=== PATIENT | male | born 1970 | race Caucasian/White ===

== ENCOUNTER → 2017-08-08 | Outpatient (CLI) | payer OTHER ==
--- NOTE | 2017-08-08 18:58 | MR ---
EXAMINATION TYPE: MR lumbar spine wo con DATE OF EXAM: 08/08/2017 COMPARISON: 01/04/2015 HISTORY: LBP, BLE radic x several years TECHNIQUE: T1 and T2 axial and sagittal images of the lumbar spine are submitted. FINDINGS: There is no abnormal signal seen within the visualized spinal cord or paraspinal soft tissu es. Vertebral body hemangioma of L4 At L1-2 there is no disc herniation or canal stenosis. No foraminal encroachment. At L2-3 there is no disc herniation or canal stenosis. No foraminal encroachment At L3-4 there is mild degenerative disc disease. Circumferential disc bulging results in mild bilater al foraminal encroachment. Borderline canal stenosis. At L4-5 there is mild/moderate degenerative disc disease diffuse central disc bulge or protrusion res ulting in moderate compression thecal sac. Facet arthropathy and ligamentum flavum hypertrophy noted. Moderate canal stenosis. At L5-S1 there is moderate degenerative disc disease. Focal central disc protrusion with moderate eff acement of thecal sac. There is moderate bilateral foraminal encroachment. Facet arthropathy contribu cameron to foraminal encroachment. IMPRESSION: 1. Stable MRI demonstrating focal central disc herniation L5-S1 with moderate effacement of thecal sa c, canal stenosis and bilateral foraminal encroachment. 2. Diffuse disc bulging or broad-based protrusion L4-L5 stable in appearance result in moderate compr ession of the thecal sac and canal stenosis. Bilateral foraminal encroachment stable. 3. Borderline canal stenosis L3-L4 due to hypertrophic changes and circumferential disc bulging. 4. Multilevel degenerative disc disease table.
== END | disposition home or self-care (01) ==
LOC: RADMRIMAIN 16:59
PROVIDERS: ATTEND Physical Medicine & Rehabilitation
DX: M48.061 Spinal stenosis, lumbar region without neurogenic claudication (principal); M51.27 Other intervertebral disc displacement, lumbosacral region; M51.36 Other intervertebral disc degeneration, lumbar region
CPT/HCPCS: 72148

== ENCOUNTER → 2019-03-27 | Outpatient (CLI) | payer OTHER ==
--- NOTE | 2019-03-27 18:23 | XR ---
EXAMINATION TYPE: XR knee complete RT DATE OF EXAM: 03/27/2019 COMPARISON: NONE HISTORY: Pain TECHNIQUE: Four views are submitted. FINDINGS: Joint spaces are preserved. Osseous structures are intact. No acute fracture seen. Calcific densit y is seen on the frontal view overlying the joint space. There is mild hypertrophic change of the pat lawanda patellofemoral joint. No erosive changes. Calcifications overlying the joint space may be relate d to early chondrocalcinosis. MRI correlation suggested.. IMPRESSION: 1. Mild arthropathy.
--- NOTE | 2019-03-27 18:25 | XR ---
EXAMINATION TYPE: XR thoracic spine 2V DATE OF EXAM: 03/27/2019 COMPARISON: NONE HISTORY: Pain Alignment is anatomic. There is no compression deformities. There is subsegmental consolidation at b oth lung bases which are partially visualized. Heart is prominent. There is hypertrophic and degenera tive disc disease throughout the visualized thoracic spine. IMPRESSION: 1. Multilevel degenerative disc disease. 2. Dedicated chest x-ray recommended if clinically warranted as there appears to be areas of subsegme ntal consolidation within the visualized lung marino at the bases. This could be secondary to reduced inspiration correlate clinically.
--- NOTE | 2019-03-28 21:02 | MR ---
EXAMINATION TYPE: MR lumbar spine wo/w con DATE OF EXAM: 03/27/2019 COMPARISON: MRI lumbar spine August 08, 2017 and older studies. HISTORY: Intervertebral disc degeneration, lumbar TECHNIQUE: Multiplanar, multisequence images of the lumbar spine is performed without and with IV contrast, util izing 9 mL intravenous Gadavist FINDINGS: Sagittal images of the lumbar spine show vertebral body heights and alignment to remain sat isfactory. Multilevel disc desiccation with mild to moderate disc space narrowing L4-L5 and L5-S1 lev els most prominent posterior aspect. The conus medullaris is normal in position and signal ending mi d L1 level. Mild multilevel anterior spurring with heterogeneous endplate changes for reference Modic type II endplate changes posterior L4-L5 level. Small hemangioma noted in L4 vertebra sagittal image 7. Axial images show the T12-L1, L1-L2, and L2-L3 levels all to appear within normal limits. Axial images at the L3-L4 level mild broad disc bulge minimally effacing the anterior thecal sac. Hussein ateral neural foramina are patent. No significant change from prior. Axial images at the L4-L5 level show [id number] broad disc bulge effacing anterior thecal sac a nd causing mild to moderate bilaterally into inferior neural foraminal narrowing. Mild facet degenera tive changes are present bilaterally. No significant change from prior. Axial images at the L5-S1 level show mild facet degenerative changes bilaterally. There is broad disc bulge with central disc protrusion component. There is [id number] bilateral anterior inferior neural foraminal narrowing. No significant change from prior. No suspicious incidental retroperitoneal findings are seen. No suspicious postcontrast enhancement is noted. IMPRESSION: Multilevel degenerative changes most prominent in the mid to lower lumbar spine as detail ed above without significant change or progression from most recent MRI.
== END | disposition home or self-care (01) ==
LOC: RADMRIMAIN 15:34
PROVIDERS: ATTEND Physical Medicine & Rehabilitation
DX: M48.061 Spinal stenosis, lumbar region without neurogenic claudication (principal); M47.816 Spondylosis without myelopathy or radiculopathy, lumbar region; M51.26 Other intervertebral disc displacement, lumbar region; M51.34 Other intervertebral disc degeneration, thoracic region; M12.861 Other specific arthropathies, not elsewhere classified, right knee
CPT/HCPCS: 72070; 73562; 72158; A9585

== ENCOUNTER → 2020-02-02 | Outpatient (CLI) | payer OTHER ==
--- NOTE | 2020-02-03 05:39 | MR ---
EXAMINATION TYPE: MR thoracic spine wo/w con DATE OF EXAM: 02/02/2020 COMPARISON: None HISTORY: Mid back pain, across shoulders and neck CONTRAST: Standard multiplanar, multisequence MRI departmental protocol utilizing 9 mL intravenous Gadavist ryan olinium contrast. Thoracic vertebra have fairly normal alignment. There is no compression fracture. Disc spaces are keri rly normal. Thoracic spinal cord has normal signal pattern. There is no edema. There is no thoracic s tanika stenosis. There is no thoracic paraspinal mass. There is mild anterior spurring in the lower th oracic spine. Contrast images show no pathologic enhancement. IMPRESSION: Multilevel anterior hypertrophic degenerative changes without significant disc space narrowing. No fr acture. No spinal stenosis. No thoracic disc herniation.
== END | disposition home or self-care (01) ==
LOC: RADMRIMAIN 15:27
PROVIDERS: ATTEND Physical Medicine & Rehabilitation
DX: M47.814 Spondylosis without myelopathy or radiculopathy, thoracic region (principal)
CPT/HCPCS: 72157; A9585

== ENCOUNTER → 2022-06-11 | Outpatient (CLI) | payer OTHER ==
--- NOTE | 2022-06-11 16:26 | XR ---
EXAMINATION TYPE: XR knee complete LT DATE OF EXAM: 06/11/2022 2:55 PM INDICATION: Patient age:Male; 51 years old; Reason for study: M25.562 PAIN IN LEFT KNEE; COMPARISON: None. TECHNIQUE: The Left knee(s) was examined in Frontal, lateral and oblique projections. FINDINGS: No evidence of any acute osseous pathology, joint space narrowing, soft tissue swelling, or joint effusion is noted. Tricompartmental osteophyte formation involving the femoral condyles, tibial plateau and patella. A fabella is present. Chondrocalcinosis is present. IMPRESSION: 1. No acute osseous pathology. 2. Mild tricompartmental osteoarthritic changes 3. Chondrocalcinosis
== END | disposition home or self-care (01) ==
LOC: RADXRMAIN 14:35
PROVIDERS: ATTEND Family Medicine
DX: M17.12 Unilateral primary osteoarthritis, left knee (principal); M11.262 Other chondrocalcinosis, left knee

== ENCOUNTER 2022-10-09 07:37 | Day surgery (SDC) | payer OTHER ==
[2022-10-05 10:58] VITALS: BMI 32.5
[~2022-10-09 07:37] MED LIST: LACTATED RINGERS 1,000 ML IV SCH
[2022-10-09 08:16] VITALS: TEMP 97
[2022-10-09] MEDS ORDERED: PROPOFOL 10 MG/ML 20 ML VIAL IV ONE (08:35)
--- NOTE | 2022-10-09 08:37 | P.GSHP ---
History of Present Illness H&P Date: 10/09/22 Chief Complaint: Colon cancer screening 52-year-old male here today for screening colonoscopy. He has not had one before. No bowel complaints. No family history of colon cancer. Past Medical History Past Medical History: Hyperlipidemia, Hypertension Additional Past Medical History / Comment(s): overactive bladder History of Any Multi-Drug Resistant Organisms: None Reported Past Surgical History: No Surgical Hx Reported Past Anesthesia/Blood Transfusion Reactions: No Reported Reaction Additional Past Anesthesia/Blood Transfusion Reaction / Comment(s): no issues with anesth during tooth extraction Past Psychological History: Anxiety, Depression Smoking Status: Never smoker Past Alcohol Use History: None Reported Past Drug Use History: Marijuana Additional Drug Use History / Comment(s): daily marijuana, asked to refrain within 24 hours of anesth. Medications and Allergies Home Medications Medication Instructions Recorded Confirmed Type Atorvastatin [Lipitor] 10 mg PO DAILY 10/05/22 10/09/22 History Fesoterodine Fumarate [Toviaz] 4 mg PO DAILY 10/05/22 10/09/22 History HYDROcodone/APAP 10-325MG [Tell 1 tab PO TID PRN 10/05/22 10/09/22 History 10-325] Losartan Potassium [Cozaar] 100 mg PO DAILY 10/05/22 10/09/22 History Multivitamins, Thera [Multivitamin 1 tab PO DAILY 10/05/22 10/09/22 History (formulary)] Sertraline [Zoloft] 100 mg PO DAILY 10/05/22 10/09/22 History Allergies Allergy/AdvReac Type Severity Reaction Status Date / Time amoxicillin [From Trimox] Allergy Rash/Hives Verified 10/09/22 07:58 Surgical - Exam Vital Signs Temp Pulse Resp BP Pulse Ox 97.0 F L 97 15 147/81 98 10/09/22 08:10 10/09/22 08:10 10/09/22 08:10 10/09/22 08:10 10/09/22 08:10 Physical exam: General: Well-developed, well-nourished HEENT: Normocephalic, sclerae nonicteric Abdomen: Nontender, nondistended Extremities: No edema Neuro: Alert and oriented Assessment and Plan (1) Colon cancer screening Narrative/Plan: Will proceed with colonoscopy at this time. Current Visit: Yes Status: Acute Code(s): Z12.11 - ENCOUNTER FOR SCREENING FOR MALIGNANT NEOPLASM OF COLON SNOMED Code(s): 957116796
--- NOTE | 2022-10-09 08:53 | P.PCN ---
Date of Procedure: 10/09/22 Procedure(s) Performed: PREOPERATIVE DIAGNOSIS: Colon cancer screening POSTOPERATIVE DIAGNOSIS: Ascending colon polyp, transverse colon polyp, extensive diverticulosis PROCEDURE: Colonoscopy with snare polypectomy ANESTHESIA: MAC SURGEON: Olvin Velarde M.D. SPECIMENS: Polyps ENDOSCOPIC PROCEDURE: The patient was placed on the endoscopy table in the left decubitus position. The Olympus colonoscope was inserted into the anus and passed under direct visualization to the base of the cecum. The appendiceal orifice was visualized. From that point the scope was slowly withdrawn inspecting all surfaces carefully. There were no neoplastic inflammatory or polypoid lesions throughout the cecum. In the ascending colon a small polyp was seen and removed using the snare with cautery technique. In the transverse colon another small polyp was seen and removed in a similar fashion. The remainder of the transverse descending sigmoid and rectum appeared normal. The patient had extensive diverticular changes primarily in the descending and sigmoid colon. Digital rectal examination was normal. The patient was taken to the recovery room in stable condition per anesthesia guidelines. RECOMMENDATIONS: Await biopsy results. Anticipate repeat colonoscopy 5 years
[2022-10-09 09:01] VITALS: RESP 16
[2022-10-09 09:13] VITALS: BP 1225/87; PULSE 82
== END 2022-10-09 09:30 ==
LOC: ORWHC2ENDO 07:37
PROVIDERS: ATTEND Surgery
DX: Z12.11 Encounter for screening for malignant neoplasm of colon (principal); D12.2 Benign neoplasm of ascending colon; D12.3 Benign neoplasm of transverse colon; K57.30 Diverticulosis of large intestine without perforation or abscess without bleeding; I10 Essential (primary) hypertension; E78.5 Hyperlipidemia, unspecified; F41.9 Anxiety disorder, unspecified; F32.A Depression, unspecified; F12.90 Cannabis use, unspecified, uncomplicated; Z87.438 Personal history of other diseases of male genital organs; Z79.899 Other long term (current) drug therapy; Z88.0 Allergy status to penicillin
CPT/HCPCS: 88305; 45385; J2704